=== PATIENT | female | born 1955 | race Caucasian/White ===

== ENCOUNTER 2016-11-16 09:30 | Inpatient (IN) | payer OTHER ==
[2016-11-22] MEDS ORDERED: LISI40TA PO (13:19)
[2016-11-22] MEDS ORDERED: AMLO2.5T PO (13:19)
[2016-11-22] MEDS ORDERED: METO100T PO (13:19)
[2016-11-22] MEDS ORDERED: ESCI20TA PO (13:19)
--- NOTE | 2016-11-28 07:31 | MH ---
cc: YG BENZ DATE OF ADMISSION 12/10/2016 PREOPERATIVE DIAGNOSIS Advanced osteoarthritis right knee PROCEDURE Right total knee arthroplasty. CHIEF COMPLAINT AND HISTORY OF PRESENT ILLNESS This 60-year-old female has a long history of progressive right knee pain. She has had several treat modalities in the past including by another orthopedist. She has had injections, medication, bracing, activity modification and attempts at weight loss. The patient has undergone a previous left total knee arthroplasty with a satisfactory result to date. X-rays of the right knee reveals advanced osteoarthritis with [id number] apposition which is worse in the lateral compartment with an associated valgus alignment. There is subluxation of the tibia and mild deformity of the plateau. In addition, there is lateral subluxation of the patella. The patient has severe limitation of her daily activity and given the alternatives to treatment presents for right total knee arthroplasty. PAST MEDICAL HISTORY Significant for hypertension and depression. CURRENT MEDICATIONS 1. Escitalopram 5 mg 2. Iron 3. Lisinopril 4. Metoprolol 5. Multivitamin 6. Tramadol 7. Vitamin D3 ALLERGIES She has no known drug allergies. PAST SURGERIES Include: 1. A gastrointestinal procedure 2. Left total knee arthroplasty 3. Total hip arthroplasty by another orthopedist. FAMILY HISTORY Noncontributory SOCIAL HISTORY The patient denies tobacco use and alcohol use. The patient is right-hand dominant. She is employed. REVIEW OF SYSTEMS Otherwise noncontributory. PHYSICAL EXAMINATION Height 5 foot 6 inches, weight 210, BMI 33.9, blood pressure 170/90. HEENT: Normocephalic, atraumatic. Pupils equal, round and reactive to light. Extraocular muscles are intact. Oropharynx is clear. NECK: Supple. LUNGS: Clear to auscultation. HEART: Regular rate and rhythm. ABDOMEN: Soft and nondistended. Bowel sounds are present. AND RECTAL: Examinations are deferred. EXTREMITIES: Reveals no cyanosis, clubbing or edema. The right knee has a valgus alignment. There is mild instability to varus and valgus stress. She has mild patellar instability and patellar apprehension. She has a restricted active range of motion from 5-125 degrees of flexion. She has a painless range of motion of the hip. NEUROLOGIC: No focal deficit. She ambulates with an antalgic gait. ASSESSMENT Advanced osteoarthritis right knee PLAN Given the alternatives to treatment, the patient does wish to pursue total knee arthroplasty at this time based on the persistent and progressive nature of her symptomatology, its limitation of her activity and its unresponsiveness to treatment to date. The nature of the planned surgical procedure, the risks, the expected benefits, as well as the postoperative expectations have been discussed with her in detail. In addition, the alternatives to treatment and risks of same were discussed. The possibility of the procedure not improving her symptomatology was discussed and she acknowledges full understanding and consents to it. Yg Benz MD RKTomy/DANIELLA /7:04 AM /7:13 AM
[2016-12-10 06:20] VITALS: BP 183/88; PULSE 49; RESP 20; TEMP 98; O2SAT 97
[2016-12-10] MEDS ORDERED: LACTATED RINGER'S 1000 ML IV SCH (06:30)
[2016-12-10] MEDS ORDERED: ceFAZolin 2 GM PREMIX 50 ML IV SCH (06:30)
[2016-12-10] MEDS ORDERED: INSULIN HUMAN REGULAR 1,000 UNITS/10 ML VIAL SQ PRN (06:30)
[2016-12-10] MEDS ORDERED: SODIUM CHLORID 0.9% 500 ML IV SCH (06:30)
[2016-12-10] MEDS ORDERED: VANCOMYCIN 1000 MG/NS 250 ML (for <70 kg) IV SCH ×2 (06:30)
[2016-12-10] MEDS ORDERED: CHLORHEXIDINE GLUCONATE 4% SOLN 120 ML BTL TOP SCH (06:30)
[2016-12-10] MEDS ORDERED: METOPROLOL TARTRATE 25 MG TAB PO PRN (06:30)
[2016-12-10] MEDS ORDERED: ceFAZolin INJ 1,000 MG VIAL ONE (07:02)
[2016-12-10] MEDS ORDERED: SODIUM CHLORIDE 0.9% 20 ML VIAL ONE (07:03)
[2016-12-10] MEDS ORDERED: MIDAZOLAM HCL 5 MG/5 ML VIAL ONE (07:41)
[2016-12-10] MEDS ORDERED: ceFAZolin INJ 1,000 MG VIAL TOP ONE (08:28)
--- NOTE | 2016-12-10 09:47 | PD.OP ---
cc: Yg Matthew MD Operative Report Date of Surgery: Dec 10, 2016 Preoperative Diagnosis: (1) Osteoarthritis of right knee Postoperative Diagnosis: (1) Osteoarthritis of right knee Procedure: Right total knee arthroplasty Implants used: Biomet Vanguard total knee system size 70 press-fit femoral component size 75 cemented tibial component with a 31 cemented polyethylene patellar button and a 12 mm tibial bearing Anesthesia: Gen. with regional block Surgeon: Yg Matthew Crust Sorter(s): Marissa Hernandez PA-C (Ashley) The surgical procedure was assisted by my physician's election assistant. Her presence was necessary throughout the case for manipulation and positioning of the surgical extremity. My PA was assisting me throughout the duration of this procedure. The skill set of the physician election assistant was medically necessary to complete this procedure. During the surgical case the arcade game technician was working at the back table and the physician election assistant was directly assisting me. Operation and Findings: Indications: This 60-year-old female has a long history of progressive right knee pain. She has had several treatment modalities in the past by another orthopedist. This included injections, medication, bracing, activity modification and attempts at weight loss. She has had a previous left total knee arthroplasty with a satisfactory result to date. X-rays of the right knee reveals advanced osteoarthritis with [id number] apposition worse in the lateral compartment with osteophyte formation and associated valgus alignment. There is subluxation of the tibia and slight deformity of the plateau. Given the alternatives of the treatment she presents for total knee arthroplasty. Procedure and findings: The patient was taken to the operative suite and after undergoing an adequate level of general anesthesia was kept supine on the operating table. Preoperative antibiotics consisted of Ancef 2 g IV and vancomycin 1 g IV. The right lower extremity was then prepped and draped in usual sterile fashion with alcohol and Hibiclens. A standard anterior approach the knee was made with incision centered over the medial one third of the patella. This was carried down through skin and subcutaneous tense tissue with a knife. The quadricep tendon was identified proximally and the patellar tendon distally. A medial parapatellar arthrotomy was made. A small joint effusion was evacuated. Upon entering the knee joint is noted to be marked degenerative changes which were tricompartmental in nature. There was bony erosion of the medial plateau and femoral condyle. The remnant of the ACL was excised. The menisci were excised. Osteophytes were removed. Attention was first focused on the distal femur where an intramedullary guide was used to make a 5 valgus cut. A sizing jig was then applied and a 70 selected. With the cutting block in place the anterior, posterior and chamfer cuts were made. Attention was then focused on the proximal tibia. An extramedullary guide was used. Approximately 4 mm of bone was resected. The varus/valgus alignment was also checked with an extramedullary guide. The tibia was then sized to a 75. A freehand technique was utilized on the patella. This was sized to a 31. Drill holes were made and trial components placed. The 12 mm tibial bearing gave the best range of motion and stability. There was lateral patellar tracking. A lateral release was therefore performed with electrocautery. These components were therefore selected. The femoral drill holes were made. The tibial cement punches were made. The wound was thoroughly irrigated with pulse lavage. Bone cement was prepared on the back table. After thorough drying it was applied to the proximal tibia. The tibial component was then impacted in the place. All excess bone cement was removed. The tibial insert was then placed and the locking mechanism seated. The femoral component was then impacted in the place. The knee was then placed in full extension for further compression. After thorough drying bone cement was applied to the undersurface of the patella. The patellar button was seated and held with a compression clamp. All excess bone cement was removed. Once the cement had matured good range of motion, patellar tracking and stability was again noted. The wound was again thoroughly irrigated with pulse lavage. AutoVac drains were left in place. The incision was closed in layers utilizing #1 Vicryl suture on the extensor mechanism, 0 Vicryl suture on the deep tissue, 2-0 Vicryl suture on the subcutaneous tissue and asmita on the skin. Sterile dressings were applied the patient was awakened transferred to the hospital bed and taken to the recovery room in stable condition. Estimated blood loss: Minimal Complications: None Tourniquet time: 73 minutes Yg Matthew MD Dec 10, 2016 09:47
[2016-12-10] MEDS ORDERED: DO NOT ADM ANY ANTICOAGULANT DRUGS XX PRN (09:55)
[2016-12-10] MEDS ORDERED: oxyCODONE/ACETAMINOPHEN 5 MG/325 MG TAB PO PRN (10:00)
[2016-12-10] MEDS ORDERED: BISACODYL 10 MG SUPP PR PRN (10:00)
[2016-12-10] MEDS ORDERED: ONDANSETRON HCL 4 MG/2 ML VIAL IVP PRN (10:00)
[2016-12-10] MEDS ORDERED: MISCELLANEOUS NURSING INFORMATION XX PRN (10:00)
[2016-12-10] MEDS ORDERED: Post-op Orders (for Pharmacy) MISC XX ONE (10:00)
[2016-12-10] MEDS ORDERED: ALUMINUM/MAGNESIUM/SIMETH 30 ML CUP PO PRN (10:00)
[2016-12-10] MEDS ORDERED: TEMAZEPAM 15 MG CAP PO PRN (10:00)
[2016-12-10] MEDS ORDERED: diphenhydrAMINE HCL 25 MG CAP PO PRN (10:00)
[2016-12-10] MEDS ORDERED: NALOXONE HCL 0.4 MG/ML AMP IV PRN (10:00)
[2016-12-10] MEDS ORDERED: SODIUM CHLORIDE 0.9% FLUSH 5 ML FLUSH IVF PRN (10:00)
[2016-12-10] MEDS ORDERED: ACETAMINOPHEN 325 MG TAB PO PRN (10:00)
[2016-12-10] MEDS ORDERED: MAGNESIUM HYDROXIDE SUSP 30 ML CUP PO PRN (10:00)
[2016-12-10] MEDS ORDERED: POVIDONE IODINE 10% SOLN 118 ML BOTTLE TOPICAL PRN (10:00)
[2016-12-10] MEDS ORDERED: fentaNYL CITRATE 250 MCG/5 ML AMP ONE (10:01)
[2016-12-10] MEDS ORDERED: PILL SPLITTER OTHER PRN (10:15)
[2016-12-10] MEDS ORDERED: MORPHINE SULFATE 4 MG/ML INJ IV PUSH PRN (10:15)
[2016-12-10] MEDS: MORPHINE SULFATE 30 MG/30 ML PCA IV SCH ×2 (10:30→16:56)
[2016-12-10] MEDS: LACTATED RINGER'S 1000 ML INJ 1,000 ML IV SCH ×2 (10:31→21:59)
[2016-12-10 11:31] VITALS: BP 147/69; PULSE 60; RESP 18; TEMP 96; O2SAT 100
[2016-12-10] MEDS ORDERED: ONDANSETRON HCL 4 MG/2 ML VIAL IV PUSH ONE (11:38)
[2016-12-10] MEDS ORDERED: PROPOFOL 200 MG/20 ML AMP IV ONE (11:38)
[2016-12-10] MEDS ORDERED: ePHEDrine/NS 25 MG/5 ML SYR IV ONE (11:38)
[2016-12-10] MEDS ORDERED: BUPIVACAINE HCL PF 0.25% 30 ML VIAL NB ONE (12:37)
[2016-12-10] MEDS ORDERED: DEXAMETHASONE SOD PHOS PF 10 MG/ML VIAL IV ONE (12:37)
[2016-12-10] MEDS ORDERED: BUPIVACAINE HCL PF 0.5% 30 ML VIAL NB ONE (12:37)
[2016-12-10] MEDS: PCA - TOTAL MG MORPHINE DELIVERED PER SHIFT SCH ×2 (14:00→21:58)
--- NOTE | 2016-12-10 14:25 | EKG ---
Date Performed: 12/10/2016 Time Performed: 06:52:35 PTAGE: 60 years EKG: SINUS BRADYCARDIA BORDERLINE ECG PREVIOUS TRACING : 04/05/2008 08.14 Compared to prior tracing no significant change DOCTOR: Orestes Dobbins Interpretating Date/Time 12/10/2016 14:24:20
[2016-12-10] MEDS: ceFAZolin 2 GM PREMIX 50 ML IV SCH ×2 (14:50→20:27)
--- NOTE | 2016-12-10 15:18 | PD.CONS ---
HPI Service [facility] Hospitalists Consult Requested By Primary Care Physician Graham Plascencia MD, PhD Diagnoses: History of Present Illness Pt with htn admitted for right tka. Seen post op and pt doing very well. no cp or sob. Awake and dneies any nausea or vomiting. She is clear about plan for going home with hhc/pt after d/c. She has been taking all 3 bp meds as prescribed at home. Review of Systems Other right knee pain Past Family Social History Past Medical History htn anxiety/depression left eliazar left tka gastric bypass Reported Medications Reported Meds & Active Scripts Active Reported Amlodipine (Amlodipine Besylate) 2.5 Mg Tab 2.5 Mg PO HS Escitalopram (Escitalopram Oxalate) 20 Mg Tab 20 Mg PO HS Metoprolol Tartrate 100 Mg Tab 100 Mg PO BID Lisinopril 40 Mg Tab 40 Mg PO BID Allergies: Coded Allergies: No Known Allergies (Verified , 11/22/16) Family History nc Social History no etoh/tob Physical Exam Vital Signs heent neg heart reg lung cta abd s/nt ext right knee bandaged. drain with bloody drainage. Vital Signs Date Time Temp Pulse Resp B/P Pulse Ox O2 Delivery O2 Flow Rate FiO2 12/10/16 14:00 15 12/10/16 11:31 96.0 60 18 147/69 100 12/10/16 11:05 54 16 146/74 97 Nasal Cannula 2 12/10/16 10:45 60 16 146/73 95 Nasal Cannula 2 12/10/16 10:30 16 12/10/16 10:30 57 16 140/70 98 Nasal Cannula 2 12/10/16 10:15 65 16 161/67 98 Nasal Cannula 2 12/10/16 10:00 56 16 144/68 96 Nasal Cannula 2 12/10/16 09:55 97.5 78 16 140/74 94 Nasal Cannula 2 12/10/16 06:20 98.0 49 20 183/88 97 Laboratory Laboratory Tests Test 12/10/16 07:05 Blood Type A POSITIVE Antibody Screen NEGATIVE Blood Bank Comment Assessment and Plan Problem List: (1) Osteoarthritis of right knee Status: Acute Plan: Pt admtted for right tka 12/10 plaster die maker to po pain meds leydi IS Pt eval dvt prophylaxis. xarelto plan for hhc/pt d/c gonzalez in AM resume home bp meds. (2) HTN (hypertension), benign Status: Chronic Plan: home meds Yg Quintana MD Dec 10, 2016 15:18
[2016-12-10 16:00] VITALS: BP 140/71; PULSE 58; RESP 18; TEMP 96.5; O2SAT 99
--- NOTE | 2016-12-10 16:15 | RADRPT ---
EXAM DATE/TIME: 12/10/2016 09:57 [place] COMPARISON: No previous studies available for comparison. INDICATIONS : Right knee post operative. MEDICAL HISTORY : None. SURGICAL HISTORY : ENCOUNTER: Initial ACUITY: 1 day PAIN SCORE: Non-responsive. LOCATION: Right knee FINDINGS: Two view examination of the right knee demonstrates a total knee arthroplasty. All 3 components are a ppropriately positioned. Suprapatellar drain is in place. CONCLUSION: Appropriate postoperative appearance of the right knee status post total arthroplasty. No fractu re. Mark Alejandro MD on December 10, 2016 at 16:12 Board Certified Radiologist. This report was verified electronically.
[2016-12-10] MEDS: MAGNESIUM HYDROXIDE SUSP 30 ML CUP PO SCH ×2 (16:58→20:32)
[2016-12-10] MEDS: METOPROLOL TARTRATE 100 MG TAB PO SCH (20:27)
[2016-12-10] MEDS: ESCITALOPRAM OXALATE 20 MG TAB PO SCH (20:27)
[2016-12-10] MEDS: amLODIPine BESYLATE 5 MG TAB PO SCH (20:27)
[2016-12-10] MEDS: LISINOPRIL 20 MG TAB PO SCH (20:27)
[2016-12-10] MEDS: SENNOSIDES 8.6 MG TAB PO SCH (20:28)
[2016-12-10 20:30] VITALS: BP 128/60; PULSE 67; RESP 16; TEMP 97.6; O2SAT 93
[2016-12-10] MEDS: SODIUM CHLORIDE 0.9% FLUSH 5 ML FLUSH IVF SCH (20:32)
[2016-12-10] MEDS: RIVAROXABAN 10 MG TAB PO SCH (21:58)
[2016-12-11 00:20] VITALS: BP 126/61; PULSE 73; RESP 16; TEMP 96.7; O2SAT 96
[2016-12-11] MEDS: ceFAZolin 2 GM PREMIX 50 ML IV SCH (01:17)
[2016-12-11 04:00] VITALS: BP 120/59; PULSE 72; RESP 16; TEMP 98.9; O2SAT 95
[2016-12-11] MEDS: PCA - TOTAL MG MORPHINE DELIVERED PER SHIFT SCH ×3 (05:53→22:00)
[2016-12-11 06:10] LABS: HEMATOCRIT 31.1 % (35.0-46.0)
[2016-12-11 06:12] LABS: REVIEW FLAG FINAL
--- NOTE | 2016-12-11 07:22 | PD.ORT.PN ---
Subjective Post Op Day #: 1 Subjective Remarks Pt laying comfortably in bed, awake and alert, with CPM on. Admits right leg pain is well under control. No other complaints at this time. Objective Vitals Vital Signs Date Time Temp Pulse Resp B/P Pulse Ox O2 Delivery O2 Flow Rate FiO2 12/11/16 05:53 17 12/11/16 04:00 98.9 72 16 120/59 95 12/11/16 00:20 96.7 73 16 126/61 96 12/10/16 21:58 21 12/10/16 20:30 97.6 67 16 128/60 93 12/10/16 17:50 21 12/10/16 16:56 15 12/10/16 16:00 96.5 58 18 140/71 99 12/10/16 14:00 15 12/10/16 11:31 96.0 60 18 147/69 100 12/10/16 11:05 54 16 146/74 97 Nasal Cannula 2 12/10/16 10:45 60 16 146/73 95 Nasal Cannula 2 12/10/16 10:30 16 12/10/16 10:30 57 16 140/70 98 Nasal Cannula 2 12/10/16 10:15 65 16 161/67 98 Nasal Cannula 2 12/10/16 10:00 56 16 144/68 96 Nasal Cannula 2 12/10/16 09:55 97.5 78 16 140/74 94 Nasal Cannula 2 I/O 12/10/16 12/10/16 12/10/16 12/11/16 12/11/16 12/11/16 07:00 15:00 23:00 07:00 15:00 23:00 Intake Total 1900 ml 840 ml 240 ml Output Total 1225 ml 1225 ml 260 ml Balance 675 ml -385 ml -20 ml Intake Oral 840 ml 240 ml IV Total 50 ml Autotransfusion 850 ml Other 1000 ml Output Urine Total 175 ml 1050 ml 175 ml Drainage Total 100 ml 175 ml 85 ml Estimated Blood Loss 100 ml Autotransfusion 850 ml # Bowel Movements 0 0 Result Diagram: 12/11/16 0529 Imaging Last 48 hours Impressions Knee X-Ray 12/10/16 0000 Signed Impressions: Service Date/Time: Saturday, December 10, 2016 09:57 - CONCLUSION: Appropriate postoperative appearance of the right knee status post total arthroplasty. No fracture. Mark Alejandro MD Procedures Right total knee arthroplasty (12/10/16) Objective Remarks RLE: Dressing dry and intact. CPM in place. Tender to palpation with mild swelling around incision site. Appropriate range of motion expected post operatively. Freely able to move distal digits. No calf pain. Negative Leandra's sign. Good cap refill. 2+ pedal pulses. Neurovascular intact. Assessment & Plan Ortho Post Op Day #: 1 Problem List: (1) Osteoarthritis of right knee (2) Status post total knee replacement, right (3) HTN (hypertension), benign Assessment and Plan Right total knee arthroplasty POD #1 Ortho status stable, progress rehab per protocol - w/b as tolerated, continue Xarelto for DVT prophylaxis, pain control and bowel regimen, discharge planning Marissa Hernandez Dec 11, 2016 07:22
[2016-12-11 08:00] VITALS: BP 125/50; PULSE 79; RESP 18; TEMP 100.2; O2SAT 92
[2016-12-11] MEDS: METOPROLOL TARTRATE 100 MG TAB PO SCH ×2 (09:14→21:10)
[2016-12-11] MEDS: LISINOPRIL 20 MG TAB PO SCH ×2 (09:14→21:10)
[2016-12-11] MEDS: MORPHINE SULFATE 30 MG/30 ML PCA IV SCH (09:18)
[2016-12-11] MEDS: MAGNESIUM HYDROXIDE SUSP 30 ML CUP PO SCH ×2 (09:18→21:10)
[2016-12-11] MEDS: SODIUM CHLORIDE 0.9% FLUSH 5 ML FLUSH IVF SCH ×2 (09:19→21:00)
[2016-12-11 12:00] VITALS: BP 101/50; PULSE 70; RESP 18; TEMP 99; O2SAT 92
[2016-12-11] MEDS: LACTATED RINGER'S 1000 ML INJ 1,000 ML IV SCH (12:00)
[2016-12-11 16:00] VITALS: BP 134/61; PULSE 71; RESP 18; TEMP 100.3; O2SAT 94
[2016-12-11 20:20] VITALS: BP 135/60; PULSE 77; RESP 16; TEMP 99.7; O2SAT 92
[2016-12-11] MEDS: DOCUSATE SODIUM 100 MG CAP PO SCH ×2 (21:00→22:08)
[2016-12-11] MEDS: MULTIVITAMINS/MINERALS THERAPEUTIC TAB PO SCH (21:10)
[2016-12-11] MEDS: amLODIPine BESYLATE 5 MG TAB PO SCH (21:11)
[2016-12-11] MEDS: RIVAROXABAN 10 MG TAB PO SCH ×2 (21:11→22:08)
[2016-12-11] MEDS: SENNOSIDES 8.6 MG TAB PO SCH (21:11)
[2016-12-11] MEDS: ESCITALOPRAM OXALATE 20 MG TAB PO SCH (21:11)
[2016-12-12] VITALS (7 sets, daily range): BP systolic 127–145; BP diastolic 63–70; PULSE 63–80; RESP 16–18; TEMP 97–99.2; O2SAT 92–97
[2016-12-12] MEDS: LACTATED RINGER'S 1000 ML INJ 1,000 ML IV SCH ×2 (00:30→13:00)
[2016-12-12] MEDS: PCA - TOTAL MG MORPHINE DELIVERED PER SHIFT SCH ×2 (06:00→13:09)
--- NOTE | 2016-12-12 06:38 | PD.ORT.PN ---
Subjective Post Op Day #: 2 Pain Scale: 4 Subjective Remarks Pt. A&A. Pain controlled. No other specific c/o. Objective Vitals Vital Signs Date Time Temp Pulse Resp B/P Pulse Ox O2 Delivery O2 Flow Rate FiO2 12/12/16 06:00 18 12/12/16 00:30 97.0 70 16 141/63 92 12/11/16 22:00 18 12/11/16 20:20 99.7 77 16 135/60 92 12/11/16 16:00 100.3 71 18 134/61 94 12/11/16 14:00 15 12/11/16 12:00 99.0 70 18 101/50 92 12/11/16 09:18 15 12/11/16 08:00 100.2 79 18 125/50 92 I/O 12/11/16 12/11/16 12/11/16 12/12/16 12/12/16 12/12/16 07:00 15:00 23:00 07:00 15:00 23:00 Intake Total 240 ml 1946 ml 480 ml Output Total 260 ml 250 ml 0 ml Balance -20 ml 1696 ml 480 ml Intake Oral 240 ml 720 ml 480 ml IV Total 1226 ml Output Urine Total 175 ml 150 ml Drainage Total 85 ml 100 ml 0 ml # Voids 2 # Bowel Movements 0 0 0 Result Diagram: 12/11/16 0529 Imaging Last 48 hours Impressions Knee X-Ray 12/10/16 0000 Signed Impressions: Service Date/Time: Saturday, December 10, 2016 09:57 - CONCLUSION: Appropriate postoperative appearance of the right knee status post total arthroplasty. No fracture. Mark Alejandro MD Procedures Right total knee arthroplasty (12/10/16) Objective Remarks RLE: Dressing dry and intact. CPM in place. Appropriate range of motion expected post operatively. Freely able to move distal digits. No calf pain. Negative Leandra's sign. Good cap refill. 2+ pedal pulses. Neurovascular intact. Assessment & Plan Ortho Post Op Day #: 2 Problem List: (1) Osteoarthritis of right knee (2) Status post total knee replacement, right (3) HTN (hypertension), benign Assessment and Plan Right total knee arthroplasty POD #2 Ortho status stable, progress rehab per protocol - w/b as tolerated, continue Xarelto for DVT prophylaxis, pain control and bowel regimen. Anticipate d/c 3/ 23 with [facility]. Yg Matthew MD Dec 12, 2016 06:38
--- NOTE | 2016-12-12 06:46 | HHI.FF ---
Face to Face Verification Diagnosis: (1) Status post total knee replacement, right Physical Therapy Gait training, Safety evaluation Knee: Total knee, Protocol: Right Canvas Knee Splint: Other (at night and when ambulatory until good quadriceps control) Right LE Weight Bearing: WB as tolerated Right LE Range of Motion: Active Assistive ROM Left LE Weight Bearing: WB as tolerated Left LE Range of Motion: Active ROM Occupational Therapy Right UE Weight Bearing: WB as tolerated Right UE Range of Motion: Active ROM Left UE Weight Bearing: WB as tolerated Left UE Range of Motion: Active ROM Nursing Nursing: Dressing changes Dressing Changes: Daily dressing change (until asmita out. RN to d/c asmita and steri strip incision 12/18/16) I have seen patient Ginny Vieyra on 12/12/16. My clinical findings support the need for the requested home health care services because: Deconditioned w/ increased weakness Limited ability to care for self High risk of falls I certify that my clinical findings support that this patient is homebound because: Post-op weakness Unsteady gait/balance Unsafe to leave home unassisted Yg Matthew MD Dec 12, 2016 06:46
[2016-12-12] MEDS ORDERED: ROLLER WALKER1 MI1 (06:52)
[2016-12-12] MEDS ORDERED: CPMMACHINE (06:52)
[2016-12-12] MEDS ORDERED: MISC-163 (06:52)
[2016-12-12] MEDS ORDERED: XARE10TA PO (06:53)
[2016-12-12] MEDS ORDERED: OXYC1TAB63 PO (06:53)
[2016-12-12] MEDS: DOCUSATE SODIUM 100 MG CAP PO SCH ×2 (08:51→20:17)
[2016-12-12] MEDS: MULTIVITAMINS/MINERALS THERAPEUTIC TAB PO SCH ×2 (08:51→20:17)
[2016-12-12] MEDS: LISINOPRIL 20 MG TAB PO SCH ×2 (08:51→20:17)
[2016-12-12] MEDS: METOPROLOL TARTRATE 100 MG TAB PO SCH ×2 (08:52→20:17)
[2016-12-12] MEDS: MAGNESIUM HYDROXIDE SUSP 30 ML CUP PO SCH ×2 (08:52→20:17)
[2016-12-12] MEDS: oxyCODONE/ACETAMINOPHEN 5 MG/325 MG TAB PO PRN ×4 (08:54→23:41)
[2016-12-12] MEDS: SODIUM CHLORIDE 0.9% FLUSH 5 ML FLUSH IVF SCH ×2 (08:55→20:17)
[2016-12-12] MEDS ORDERED: MISCELLANEOUS PHARMACY INFORMATION XX ONE (11:00)
[2016-12-12] MEDS: ESCITALOPRAM OXALATE 20 MG TAB PO SCH (20:17)
[2016-12-12] MEDS: amLODIPine BESYLATE 5 MG TAB PO SCH (20:17)
[2016-12-12] MEDS: SENNOSIDES 8.6 MG TAB PO SCH (20:17)
[2016-12-12] MEDS: RIVAROXABAN 10 MG TAB PO SCH (22:04)
[2016-12-13 00:26] VITALS: BP 149/70; PULSE 69; RESP 17; TEMP 100.3; O2SAT 96
[2016-12-13] MEDS: LACTATED RINGER'S 1000 ML INJ 1,000 ML IV SCH ×2 (01:30→10:34)
[2016-12-13] MEDS: oxyCODONE/ACETAMINOPHEN 5 MG/325 MG TAB PO PRN ×2 (06:16→10:12)
--- NOTE | 2016-12-13 07:22 | PD.ORT.PN ---
Subjective Post Op Day #: 3 Subjective Remarks Pt laying comfortably in bed, awake and alert, with CPM on. Admits right leg pain is well under control. Admits to walking several times yesterday. No other complaints at this time. Objective Vitals Vital Signs Date Time Temp Pulse Resp B/P Pulse Ox O2 Delivery O2 Flow Rate FiO2 12/13/16 00:26 100.3 69 17 149/70 96 12/12/16 19:02 97.7 80 16 131/63 97 12/12/16 16:10 97.7 63 17 132/63 96 12/12/16 12:00 97.1 67 18 127/68 95 12/12/16 09:34 94 21 12/12/16 08:00 98.9 75 18 130/70 94 I/O 12/12/16 12/12/16 12/12/16 12/13/16 12/13/16 12/13/16 07:00 15:00 23:00 07:00 15:00 23:00 Intake Total 960 ml 240 ml 240 ml Balance 960 ml 240 ml 240 ml Intake Oral 960 ml 240 ml 240 ml # Voids 3 1 2 # Bowel Movements 0 1 1 Result Diagram: 12/11/16 0529 Imaging Last 48 hours Impressions Knee X-Ray 12/10/16 0000 Signed Impressions: Service Date/Time: Saturday, December 10, 2016 09:57 - CONCLUSION: Appropriate postoperative appearance of the right knee status post total arthroplasty. No fracture. Mark Alejandro MD Procedures Right total knee arthroplasty (12/10/16) Objective Remarks RLE: Dressing dry and intact. CPM in place. Appropriate range of motion expected post operatively. Freely able to move distal digits. No calf pain. Negative Leandra's sign. Good cap refill. 2+ pedal pulses. Neurovascular intact. Assessment & Plan Ortho Post Op Day #: 3 Problem List: (1) Osteoarthritis of right knee (2) Status post total knee replacement, right (3) HTN (hypertension), benign Assessment and Plan Right total knee arthroplasty POD #3 Ortho status stable, progress rehab per protocol - w/b as tolerated, continue Xarelto for DVT prophylaxis, pain control and bowel regimen. Anticipate d/c today with [facility]. Marissa Hernandez Dec 13, 2016 07:21
--- NOTE | 2016-12-13 07:27 | HHI.DS ---
Discharge Summary Admission Date Dec 10, 2016 at 06:03 Discharge Date: Dec 13, 2016 Admitting Diagnosis Right Knee Osteoarthritis, s/p R TKA Diagnosis: (1) Osteoarthritis of right knee Diagnosis: Principal (2) Status post total knee replacement, right (3) HTN (hypertension), benign Procedures Right total knee arthroplasty (12/10/16) Brief History This is a 60 year old female patient with a long history of right knee pain, with failed conservative treatment, including weight loss, bracing, injections, therapy and medications, it was determined to progress forward with surgical treatment. CBC/BMP: 12/11/16 0529 Significant Findings Laboratory Tests Test 12/11/16 05:29 Hemoglobin 11.4 GM/DL (11.6-15.3) Hematocrit 31.1 % (35.0-46.0) Imaging Last Impressions Knee X-Ray 12/10/16 0000 Signed Impressions: Service Date/Time: Saturday, December 10, 2016 09:57 - CONCLUSION: Appropriate postoperative appearance of the right knee status post total arthroplasty. No fracture. Mark Alejandro MD PE at Discharge RLE: Dressing dry and intact. CPM in place. Appropriate range of motion expected post operatively. Freely able to move distal digits. No calf pain. Negative Leandra's sign. Good cap refill. 2+ pedal pulses. Neurovascular intact. Hospital Course On the day of admission the patient was taken to the operating room where the patient underwent right total knee arthroplasty. The patient tolerated the procedure well. For details of operative report please see dictated operative report. The patient was placed on Ancef for infection prophylaxis and Xarelto for DVT prophylaxis. Physical therapy was consulted for discharge planning. The patient will undergo home health care and it has been ordered. At the time of discharge the patient was afebrile. Incision line noted to be healing well. The patient will be discharged home with Xarelto for DVT prophylaxis and prescribed Percocet for pain. The patient acknowledges full understanding of plan of treatment and agrees to it. Pt Condition on Discharge: Good Discharge Disposition: Disch w/ Home Health Serv Discharge Instructions Diet Instructions: High Fiber Diet Activities You Can Perform: Weight Bearing as Levy Activities to Avoid: Lifting/Bending Marissa Hernandez Dec 13, 2016 07:27
[2016-12-13 07:46] VITALS: BP 133/64; PULSE 70; RESP 18; TEMP 96.4; O2SAT 95
[2016-12-13] MEDS: MAGNESIUM HYDROXIDE SUSP 30 ML CUP PO SCH (09:00)
[2016-12-13] MEDS: DOCUSATE SODIUM 100 MG CAP PO SCH (09:00)
[2016-12-13] MEDS: MULTIVITAMINS/MINERALS THERAPEUTIC TAB PO SCH (10:10)
[2016-12-13] MEDS: METOPROLOL TARTRATE 100 MG TAB PO SCH (10:10)
[2016-12-13] MEDS: LISINOPRIL 20 MG TAB PO SCH (10:11)
[2016-12-13] MEDS: SODIUM CHLORIDE 0.9% FLUSH 5 ML FLUSH IVF SCH (10:11)
== END 2016-12-13 12:01 | disposition home health service (06) | DRG 470 ==
LOC: HSDI 12-10 06:03 → N06B 12-10 11:18
PROVIDERS: ADMIT Orthopaedic Surgery Sports Medicine; ATTEND Orthopaedic Surgery Sports Medicine
PROC: 3E0T3CZ (ICD-10-PCS; 2016-12-10)
PROC: 0SRC0J9 Replacement of Right Knee Joint with Synthetic Substitute, Cemented, Open Approach (ICD-10-PCS; principal; 2016-12-10 07:57)
DX: M17.11 Unilateral primary osteoarthritis, right knee (principal); I10 Essential (primary) hypertension; M23.8X1 Other internal derangements of right knee; Z98.84 Bariatric surgery status; Z96.652 Presence of left artificial knee joint
CPT/HCPCS: 73560; 85014; 85018; 86850; 86900; 86901; 93005; 94150; C1776; J0690; J1100; J2250; J2270; J2405; J3010; J3370; J7050; J7120; L1830

== ENCOUNTER → 2016-11-19 | Outpatient (CLI) | payer OTHER ==
[~2016-11-19] MED LIST: AMLO2.5T PO; CPMMACHINE; ESCI20TA PO; LISI40TA PO; LOVA1TAB47 PO; METO100T PO; MISC-163; OXYC1TAB63 PO; ROLLER WALKER1 MI1; TOPR100T15 PO; XARE10TA PO
== END ==
LOC: CPRE 11:26
PROVIDERS: ATTEND Orthopaedic Surgery Sports Medicine
DX: Z01.810 Encounter for preprocedural cardiovascular examination (principal); Z01.811 Encounter for preprocedural respiratory examination; Z01.812 Encounter for preprocedural laboratory examination; Z01.818 Encounter for other preprocedural examination; Z96.60 Presence of unspecified orthopedic joint implant; Z13.9 Encounter for screening, unspecified; M79.609 Pain in unspecified limb
CPT/HCPCS: 87640; 87641

== ENCOUNTER → 2016-11-28 | Outpatient (CLI) | payer OTHER ==
[~2016-11-28] MED LIST changes: -LOVA1TAB47 PO; -TOPR100T15 PO
[2016-11-28 17:43] LABS: MRSA PCR NEGATIVE (NEGATIVE); STAPH AUREUS PCR NEGATIVE (NEGATIVE)
== END ==
LOC: CPRE 14:29
PROVIDERS: ATTEND Orthopaedic Surgery Sports Medicine
DX: Z01.812 Encounter for preprocedural laboratory examination (principal); M79.609 Pain in unspecified limb; Z79.01 Long term (current) use of anticoagulants
CPT/HCPCS: 87640; 87641